=== PATIENT | male | born 1975 | race Caucasian/White ===

== ENCOUNTER 2020-12-18 06:24 | Emergency (ER) | payer OTHER, SELFPAY ==
--- NOTE | ~2020-12-18 | CT_ITS ---
EXAMINATION: CTA chest PE protocol DATE: 12/18/2020 08:22 INDICATION: Chest discomfort. Palpitations. TECHNIQUE: Computed tomography angiography (CTA) of the chest was performed with 100 mL Omnipaque-350 intravenous contrast timed to evaluate the pulmonary arteries. Coronal maximum intensity projection 3D-reconstructions were created by the technologist. Automated exposure control and iterative reconst ruction technique were employed. The dose-length product was 574.80 mGy-cm. COMPARISON: CT abdomen and pelvis 03/29/2018 FINDINGS: There is a small groundglass opacity in left upper lobe. There are patchy groundglass opaci ties in right lower lobe. There is mild atelectasis bilaterally. No pleural effusion. The heart size is normal. There is no pulmonary embolus. There is mild chronic anterior wedging of T7 vertebral body . IMPRESSION: 1. No pulmonary embolus. Sensitivity is mildly decreased by motion artifact. 2. Groundglass opacities in right lower lobe and left upper lobe, consistent with pneumonia. Reviewed, dictated and finalized at location B. IMPRESSION: 1. No pulmonary embolus. Sensitivity is mildly decreased by motion artifact. 2. Groundglass opacities in right lower lobe and left upper lobe, consistent wi th pneumonia.
--- NOTE | ~2020-12-18 | XR_ITS ---
EXAMINATION: XR chest 2V EXAM DATE: 12/18/2020 06:59 INDICATION: Chest pressure and palpitations. TECHNIQUE: Frontal and lateral projections of the chest obtained and reviewed. There is no prior polly dy for comparison. FINDINGS: Small amount of ill-defined right midlung zone airspace disease most likely infection. Ple ase clinically correlate. Left lung is clear. Cardiomediastinal silhouette is normal. There is no pne umothorax suspected. Mass or effusion There are no osseous abnormalities identified. IMPRESSION: Subsegmental right midlung zone acute airspace disease likely infection. Reviewed, dictated and finalized at location A. N [employer] IMPRESSION: Subsegmental right midlung zone acute airspace disease likely infec tion.
[2020-12-18 06:28] VITALS: BP 157/89; PULSE 66; RESP 13; TEMP 36.4; O2SAT 97
[2020-12-18 06:31] VITALS: BP 157/89; PULSE 71; RESP 17; O2SAT 98
--- NOTE | 2020-12-18 06:33 | ECG_ITS ---
Measurements Intervals [place] Rate: 65 P: 38 IA: 195 QRS: 55 QRSD: 98 T: 28 QT: 368 QTc: 384 Interpretive Statements SINUS RHYTHM INCOMPLETE RIGHT BUNDLE BRANCH BLOCK BORDERLINE ECG Electronically Signed On 12-18-2020 14:08:00 [employer]PUTY [employer]ICER by Chris Oneal D.O.
[2020-12-18 06:45] VITALS: BP 138/87; PULSE 66; RESP 16; O2SAT 97
[2020-12-18 06:49] LABS: Basophils Percent Auto 0.2 % (0.2-1.2); Eosinophils Absolute Auto 0.1 K/mm3 (0-0.3); Eosinophils Percent Auto 1.5 % (0-4.4); Hematocrit 45.5 % (42.0-52.0); Hemoglobin 16.1 g/dL (14.0-18.0); Immature Granulocyte Absolute 0.02 K/mm3 (0.00-0.031); Immature Granulocyte Percent A 0.4 % (0-0.5); Lymphocytes Absolute Auto 1.79 K/mm3 (0.9-3.2); Lymphocytes Percent Auto 33.7 % (18.3-44.2); Mean Corpuscular HGB Conc 35.4 g/dl (32-36); Mean Corpuscular Volume 87.7 fl (80-100); Mean Platelet Volume 8.9 fl (7.4-10.4); Monocytes Absolute Auto 0.6 K/mm3 (0.1-0.6); Monocytes Percent Auto 11.3 % (2.6-8.5); Neutrophils Absolute Auto 2.8 K/mm3 (1.3-6.7); Neutrophils Percent Auto 52.9 % (45.5-73.1); Platelet Count Result 163 k/mm3 (150-375); Red Blood Count 5.19 M/mm3 (4.6-6.20); Red Cell Distribution Width 11.3 % (11.5-14.5); White Blood Count 5.3 K/mm3 (4.5-10.0)
[2020-12-18 06:57] VITALS: BP 138/90; PULSE 74; RESP 19; O2SAT 96
[2020-12-18 07:01] VITALS: BP 137/85; RESP 11; O2SAT 97
[2020-12-18 07:02] LABS: Alanine Aminotransferase 46 U/L (4-50); Albumin Level 4.3 g/dL (3.5-5.1); Alkaline Phosphatase 78 U/L (38-126); Anion Gap 4 mmol/L (8-16); Aspartate Amino Transferase 47 U/L (17-59); Bilirubin,Total 0.7 mg/dL (0.2-1.3); Blood Urea Nitrogen 24 mg/dL (9-20); Calcium 9.3 mg/dL (8.4-10.2); Carbon Dioxide 31 mmol/L (22-30); Chloride 105 mmol/L (98-107); Estimated CRCL calculation 95 ml/min; Estimated Glomerular Filt Rate > 60; Glucose 95 mg/dL (75-110); Sodium 140 mmol/L (137-145)
[2020-12-18 07:08] LABS: Magnesium 1.9 mg/dL (1.6-2.3)
[2020-12-18 07:13] LABS: Troponin I < 0.012 ng/mL (0.000-0.034)
[2020-12-18 07:16] LABS: Amphetamine Screen Urine Negative (Negative); Barbiturate Screen Urine Negative (Negative); Benzodiazepines Screen Urine Negative (Negative); Cannabinoid Screen Urine Negative (Negative); Cocaine Screen Urine Negative (Negative); Methadone Screen Urine Negative (Negative); Opiate Screen Urine Negative (Negative); Phencyclidine Screen Urine Negative (Negative)
--- NOTE | 2020-12-18 07:25 | PC.NURSE ---
REPORT RECEIVED FROM ENRICO Jamison RN. CARE ASSUMED. PT RESTING QUIETLY AND AWARE OF PENDING TEST RESULTS.
--- NOTE | 2020-12-18 08:42 | ED.GENADULT ---
HPI - General Adult General Chief complaint: Arrhythmia/Palpitations Stated complaint: Palpitations/COVID positive Time Seen by Provider: 12/18/20 07:22 History of Present Illness HPI narrative: Patient is a 45-year-old gentleman who presents the emergency department with chief complaint of palpitations. Patient reports he was diagnosed with Covid. Patient states that he has had where he feels as though his heart beats really slow at times and feels as though it skips beats. Patient states that he is also felt short of breath and noticed that he had some shortness of breath with exertion. Patient states he looked on the Internet and read about myocarditis and was concerned that he may have myocarditis. Patient denies diaphoresis denies pleuritic chest pain. Patient denies lower extremity edema. complaint: Palpitations Related Data Allergies Allergy/AdvReac Type Severity Reaction Status Date / Time doxycycline Allergy Unknown Verified 11/29/13 15:54 AMOXICILLIN TRIHYDRATE Allergy Mild DIARRHEA Uncoded 03/07/11 11:26 Review of Systems Review of Systems: Narrative: A 10 system review of systems was completed on the patient and is negative except for what is stated in the HPI. Nursing and ancillary documentation was reviewed. [facility] Family History Family History Father Hypertension Sibling Hypertension Family history of malignant melanoma Social History Social History Smoking status: Former smoker Smoking end date: 11/28/08 Alcohol intake: current Gender identity (if verbalized by the patient): Male Comments Patient has past medical history significant for Covid 19 Exam Narrative: Exam Narrative: GENERAL: Well-appearing, well-nourished, and in no acute distress. HEAD: Normocephalic, atraumatic. EYES: PERRLA and EOMI. ENT: Nares clear, no rhinorrhea or epistaxis. Mucous membranes moist. NECK: Supple. CHEST: Clear to auscultation. No respiratory distress. HEART: Regular rate and rhythm. No murmur heard. Normal peripheral pulses. ABDOMEN: Soft, nontender, nondistended, normal active bowel sounds. EXTREMITIES: Normal range of motion. No edema. SKIN: Warm, dry, no rash. NEURO: No focal deficits. Alert and oriented x3. PSYCH: Normal mood and affect. Course Vital Signs Vital signs: Vital Signs Temperature 36.4 C 12/18/20 06:28 Pulse Rate 66 12/18/20 06:28 Respiratory Rate 13 12/18/20 06:28 Blood Pressure 157/89 H 12/18/20 06:28 Pulse Oximetry 97 12/18/20 06:28 Temperature 36.4 C 12/18/20 06:28 Pulse Rate 74 12/18/20 06:57 Respiratory Rate 11 L 12/18/20 07:01 Blood Pressure 137/85 12/18/20 07:01 Pulse Oximetry 97 12/18/20 07:01 Medical Decision Making Vital Signs Vital Signs: Vital Signs Temperature 36.4 C 12/18/20 06:28 Pulse Rate 66 12/18/20 06:28 Respiratory Rate 13 12/18/20 06:28 Blood Pressure 157/89 H 12/18/20 06:28 Pulse Oximetry 97 12/18/20 06:28 Temperature 36.4 C 12/18/20 06:28 Pulse Rate 74 12/18/20 06:57 Respiratory Rate 11 L 12/18/20 07:01 Blood Pressure 137/85 12/18/20 07:01 Pulse Oximetry 97 12/18/20 07:01 Lab Data Result diagrams: 12/18/20 06:42 12/18/20 06:42 Labs: Lab Results 12/18/20 12/18/20 12/18/20 Range/Units 06:42 06:42 06:42 WBC 5.3 (4.5-10.0) K/mm3 RBC 5.19 (4.6-6.20) M/mm3 Hgb 16.1 (14.0-18.0) g/dL Hct 45.5 (42.0-52.0) % MCV 87.7 (80-100) fl MCH 31.0 (26-34) pg MCHC 35.4 (32-36) g/dl RDW 11.3 L (11.5-14.5) % Plt Count 163 (150-375) k/mm3 MPV 8.9 (7.4-10.4) fl Immature Gran % (Auto) 0.4 (0-0.5) % Neut % (Auto) 52.9 (45.5-73.1) % Lymph % (Auto) 33.7 (18.3-44.2) % [place] % (Auto) 11.3 H (2.6-8.5) % Eos % (Auto) 1.5 (0-4.4) % Baso % (Auto) 0.2 (0.2-1.2)
[2020-12-18 08:53] LABS: Free T4 Free Thyroxine Reflex 1.14 ng/dL (0.78-2.19)
[2020-12-18 09:00] VITALS: BP 130/79; PULSE 71; RESP 16; O2SAT 99
[2020-12-18 10:26] LABS: Total Triiodothyronine (T3) 1.32 NG/ML (0.97-1.69)
== END 2020-12-18 09:00 | disposition home or self-care (01) ==
PROVIDERS: Emergency Medicine; Emergency Provider Emergency Medicine; PCP Family Medicine
DX: R00.2 Palpitations (principal); J18.9 Pneumonia, unspecified organism; Z86.16 Personal history of COVID-19; Z87.891 Personal history of nicotine dependence; I45.10 Unspecified right bundle-branch block
CPT/HCPCS: 36415; 71046; 71275; 80053; 80307; 83735; 84439; 84443; 84480; 84484; 85025; 93005; 99284; Q9967

== ENCOUNTER 2021-06-20 18:47 | Emergency (ER) | payer OTHER, SELFPAY ==
[2021-06-20 18:53] VITALS: BP 133/75; PULSE 73; RESP 16; TEMP 36.7; O2SAT 98
--- NOTE | 2021-06-20 19:08 | ED.GENADULT ---
HPI - General Adult General Chief complaint: Extremity Injury, Upper Stated complaint: injured hand Time Seen by Provider: 06/20/21 19:00 Source: patient and RN notes reviewed Mode of arrival: ambulatory Limitations: no limitations History of Present Illness HPI narrative: 46-year-old male present with complaints of laceration to right hand, caused by nail puncturing hand by force for the past 4 hours. Matthew reports pushing on a beam in the garage which had a nail sticking out causing him to puncture the head of the nail with RT hand. ?Cleaned hand, applied Neosporin, and pressure to control bleeding. ?Denies focal weakness, altered sensation. ?Denies pain, numbness or tingling, or loss of mobility. ?No foreign body sensation. ?HAND dominant is the RIGHT hand. Tetanus NOT up to date, will update today. ?The patient reports he was diagnosed with COVID-16 January 2021. ?The patient reports he received his first Pfizer COVID-19 vaccine awaiting 2nd vaccine. ?The patient reports he is not waiting for the results of a COVID-19 lab test. ?The patient reports he does not have fever, chills, weakness, or fatigue. ?The patient reports he does not have a new or worsening cough or shortness of breath. ?Denies chest pain. ?The patient reports he does not have any rhinorrhea, congestion, sore throat, loss of taste, nausea, vomiting, abdominal pain, and diarrhea. ?Tolerating po intake well. Denies recent traveling. ?Denies concerns for COVID-19 or exposures. ?At this time, the patient is not suspected of having COVID-19. Some parts of this dictation were generated by voice recognition software and may contain typographical and/or grammatical inaccuracies Related Data Home Medications Medication Instructions Recorded Confirmed loperamide-simethicone 1 tablet PO Q1H PRN 06/20/21 06/20/21 Allergies Allergy/AdvReac Type Severity Reaction Status Date / Time doxycycline Allergy Unknown Rash Verified 06/20/21 18:59 AMOXICILLIN TRIHYDRATE Allergy Mild DIARRHEA Uncoded 06/20/21 18:59 Review of Systems Review of Systems: Narrative: CONSTITUTIONAL: Denies fever, chills, sweats. EYES: Denies visual changes, redness, discharge. ENT: Denies rhinorrhea, congestion, sore throat, otalgia. CARDIOVASCULAR: Denies chest pain, palpitations, edema. RESPIRATORY: Denies dyspnea, wheezing, cough. GASTROINTESTINAL: Denies abdominal pain, nausea, vomiting, or diarrhea. SKIN: Denies rash or itching. Complaints of laceration to right hand. MUSCULOSKELETAL: Denies acute back pain, joint pain, or myalgia. NEUROLOGIC: Denies numbness or focal weakness. PSYCHIATRIC: Denies anxiety or depression. All other systems reviewed & are unremarkable except as noted in HPI and below. [facility] Past Medical History Medical History (Updated 06/21/21 @ 00:01 by Allie Geller) No significant past medical history Surgical History Surgical History (Updated 06/20/21 @ 19:29 by PATRICIO Jenkins) No significant past surgical history Family History Family History Father Hypertension Sibling Hypertension Family history of malignant melanoma Social History Social History (Updated 06/20/21 @ 19:30 by PATRICIO Jenkins) Smoking status: Former smoker Tobacco type: cigarettes Second hand tobacco smoke exposure: No Smoking end date: 11/28/08 Alcohol intake: current Substance use: former Substance use type: marijuana Living arrangements: with family Occupation/Education: occupation Gender identity (if verbalized by the patient): Male Sexual Orientation (if Verbalized by the Patient): Straight or Heterosexual Comments At time of signature, agree with the nurse past medical, surgical, social, and family history. There is no relevant family history pertinent to the presenting complaint. Exam Narrative: Exam Narrative: GENERAL: This is a well-nourished, well-developed patient,
[2021-06-20] MEDS: TETANUS,DIPHTHERIA,AC PERTUSSIS ADULT (0.5 ML) BOOSTRIX IM (19:30)
== END 2021-06-20 19:45 | disposition home or self-care (01) ==
PROVIDERS: Emergency Provider Nurse Practitioner Family; PCP Family Medicine
DX: S61.411A Laceration without foreign body of right hand, initial encounter (principal); W45.0XXA Nail entering through skin, initial encounter; Z23 Encounter for immunization; Z87.891 Personal history of nicotine dependence
CPT/HCPCS: 90715; 96372; 99213; G0463

== ENCOUNTER 2023-10-17 08:28 | Day surgery (SDC) | payer OTHER, SELFPAY ==
[2023-07-26 11:28] VITALS: BMI 28.2
[2023-10-17 09:46] VITALS: BP 136/88; PULSE 73; RESP 14; TEMP 36.4; O2SAT 98
[2023-10-17] MEDS: LACTATED RINGERS 1,000 ML 150 ML IV CONT (09:59)
--- NOTE | 2023-10-17 10:05 | P.HP_ITS ---
History of Present Illness History of Present Illness Consent: Risks, benefits, and alternatives have been discussed and questions answered. Patient agrees to proceed with procedure. Chief complaint: Neoplasm Screening Narrative: Matthew Wellington is a 48 year old male presents for screening colonoscopy. Patient has current weight appetite and is are normal. Patient denies abdominal pain. He has had no bleeding. Family history noncontributory. Review of Systems Review of Systems: Review of systems noncontributory. [facility] Past Medical History Medical History No significant past medical history Surgical History Surgical History No significant past surgical history Family History Family History Father Hypertension Sibling Hypertension Family history of malignant melanoma Social History Social History Smoking status: Never smoker Tobacco type: cigarettes Second hand tobacco smoke exposure: No Smoking end date: 11/28/08 Alcohol intake: current Alcohol use details: Pt states socially, 12 on the weekend Substance use: former Substance use type: does not use Living arrangements: with family Occupation/Education: occupation Gender identity (if verbalized by the patient): Male Sexual Orientation (if Verbalized by the Patient): Straight or Heterosexual Spiritual care concerns: No Meds Home Medications and Allergies Home Medications Medication Instructions Recorded Confirmed Type multivitamin 1 tablet PO DAILY 09/30/23 10/17/23 History Allergies Allergy/AdvReac Type Severity Reaction Status Date / Time doxycycline Allergy Unknown Rash Verified 10/17/23 09:43 AMOXICILLIN TRIHYDRATE Allergy Mild DIARRHEA Uncoded 10/17/23 09:43 Vital Signs Vital Signs - 24 hr 10/17/23 09:46 Temperature 97.6 F Pulse Rate 73 Respiratory Rate 14 Blood Pressure 136/88 Pulse Oximetry 98 Oxygen Delivery Room Air Exam Narrative: Physical exam reveals patient to be alert. Stable. Unremarkable. Patient is anicteric. Lungs are clear to auscultation and to percussion. Heart is without murmur or extra sounds. Abdomen bowel sounds are present soft nontender with no organomegaly. Digital external rectal exam is normal. Assessment and Plan Assessment and plan (1) Encounter for screening colonoscopy: Code(s): Z12.11 - Encounter for screening for malignant neoplasm of colon Status: Acute Assessment and Plan: Patient presents today for screening colonoscopy.
--- NOTE | 2023-10-17 10:10 | WPDANESEPPF ---
Anes - Initial Pre Proc Eval Procedure: Operation Date: 10/17/23 11:00 Proposed Procedures p Screening Colonoscopy - Matthew Quiroz MD Date/Time: 10/17/23 10:10 Surgeon: Matthew Quiroz MD Pre Op Diagnosis: Neoplasm Screening Patient Data Age: 48 Gender: M Height: 1.88 m Weight: 100.1 kg Last Vital Signs Temp 36.4 C 10/17/23 09:46 Pulse 73 10/17/23 09:46 Resp 14 10/17/23 09:46 BP 136/88 10/17/23 09:46 Pulse Ox 98 10/17/23 09:46 O2 Del Method Room Air 10/17/23 09:46 Allergies Allergy/AdvReac Type Severity Reaction Status Date / Time doxycycline Allergy Unknown Rash Verified 10/17/23 09:43 AMOXICILLIN TRIHYDRATE Allergy Mild DIARRHEA Uncoded 10/17/23 09:43 Home Medications Medication Instructions Recorded Confirmed Type multivitamin 1 tablet PO DAILY 09/30/23 10/17/23 History Patient hx anesthesia problems: none Family hx anesthesia problems: none Results Review: All pre-operative results and documents have been reviewed as part of the pre-operative evaluation. [facility] Past Medical History Medical History No significant past medical history Surgical History Surgical History No significant past surgical history Family History Family History Father Hypertension Sibling Hypertension Family history of malignant melanoma Social History Social History Smoking status: Never smoker Tobacco type: cigarettes Second hand tobacco smoke exposure: No Smoking end date: 11/28/08 Alcohol intake: current Alcohol use details: Pt states socially, 12 on the weekend Substance use: former Substance use type: does not use Living arrangements: with family Occupation/Education: occupation Gender identity (if verbalized by the patient): Male Sexual Orientation (if Verbalized by the Patient): Straight or Heterosexual Spiritual care concerns: No Anes - Eval Final PreProcedure Day of Procedure 10/17/23 10:10 Patient weight: overweight Heart: regular rate and rhythm Lungs: clear to auscultation Airway: Mallampati scale class II Neurological: alert and oriented Last oral intake: >/= 8 hours ASA classification: II Emergent: no Anesthetic plan: proceed Anesthesia type and monitoring: general GIVS and standard monitoring Results Review: All pre-operative results and documents have been reviewed as part of the pre-operative evaluation. Informed Consent: The patient's anesthetic plan and its attendant risks and benefits were discussed with the patient/family/POA. Questions were solicited and answers provided to the satisfaction of the patient/family/POA.
[2023-10-17 10:51] VITALS: BP 108/72; PULSE 69; RESP 16; O2SAT 97
[2023-10-17 11:00] VITALS: BP 113/74; PULSE 74; RESP 16; O2SAT 97
--- NOTE | 2023-10-17 11:09 | WPDANESPN ---
Anes - Prog Note Post-Op Date/Time: 10/17/23 11:09 Cardiovascular status: normal Respiratory status: normal Airway patency: baseline Mental status: baseline Post-Op hydration status: normal Vital Signs: Last Vital Signs Temp 36.4 C 10/17/23 09:46 Pulse 74 10/17/23 11:00 Resp 16 10/17/23 11:00 BP 113/74 10/17/23 11:00 Pulse Ox 97 10/17/23 11:00 O2 Del Method Room Air 10/17/23 11:00 Pain Score (VAS): 0/10 I/O: Intake & Output 10/16/23 10/17/23 10/17/23 23:59 07:59 15:59 Intake Total 500 Balance 500 Patient Feedback: Patient satisfied with anesthetic care.
[2023-10-17 11:10] VITALS: BP 115/78; PULSE 75; RESP 16; O2SAT 98
== END 2023-10-17 11:25 | disposition home or self-care (01) ==
PROVIDERS: PCP Family Medicine; Visit Provider Internal Medicine Gastroenterology
PROC: 0DJD8ZZ Inspection of Lower Intestinal Tract, Via Natural or Artificial Opening Endoscopic (ICD-10-PCS; CPT 45378; principal; 2023-10-17 11:00)
DX: Z12.11 Encounter for screening for malignant neoplasm of colon (principal); D12.5 Benign neoplasm of sigmoid colon; K57.30 Diverticulosis of large intestine without perforation or abscess without bleeding; K64.8 Other hemorrhoids
CPT/HCPCS: 45385

== ENCOUNTER 2023-10-17 12:43 | Outpatient (NON) | payer OTHER, SELFPAY | END 2023-10-17 12:44 | disposition home or self-care (01) | PROVIDERS: PCP Family Medicine; Visit Provider Internal Medicine Gastroenterology | DX: Z12.11 Encounter for screening for malignant neoplasm of colon (principal) | CPT/HCPCS: 88305 ==